=== PATIENT | male | born 1950 | race Caucasian/White ===

== ENCOUNTER 2017-05-08 06:56 | Day surgery (SDC) | payer MEDICARE, BC ==
[~2017-05-08 06:56] MED LIST: Bupivacaine 0.5%/EPINEPHrine 1:200,000 50 ML MDV ONE
[2017-05-08] MEDS ORDERED: Neostigmine Methylsulfate 1 MG/ML 5 ML Syringe ONE (07:29)
[2017-05-08] MEDS ORDERED: Propofol 200 MG/20 ML SDV ONE (07:29)
[2017-05-08] MEDS ORDERED: Rocuronium 50 MG/5 ML Vial ONE (07:29)
[2017-05-08] MEDS ORDERED: Dexamethasone 4 MG/ML SDV ONE (07:29)
[2017-05-08] MEDS ORDERED: Glycopyrrolate 0.2 MG/ML 5 ML MDV ONE (07:29)
[2017-05-08] MEDS ORDERED: Succinylcholine 200 MG/10 ML MDV ONE (07:29)
[2017-05-08] MEDS ORDERED: Ondansetron 4 MG/2 ML SDV ONE (07:29)
[2017-05-08] MEDS: Dextrose 5%-Lactated Ringers 1,000 ML IV SCH ×2 (07:54→22:03)
[2017-05-08] MEDS ORDERED: cefOXitin 2 GM in Sodium Chloride 0.9% 50 ML IV ONE (08:15)
[2017-05-08] MEDS ORDERED: Naloxone 0.4 MG/ML SDV IVPUSH PRN (08:51)
[2017-05-08] MEDS ORDERED: HYDROmorphone/Normal Saline 15 MG/30 ML PCA IV PRN (08:51)
[2017-05-08] MEDS ORDERED: Insulin Aspart 100 Units/ML 3 ML Pen SUBCUT ONE (10:15)
[2017-05-08] MEDS ORDERED: hydrOXYzine HCl 100 MG/2 ML SDV IM ONE (10:15)
[2017-05-08] MEDS ORDERED: fentaNYL 100 MCG/2 ML SDV IVPUSH ONE (10:25)
[2017-05-08] MEDS ORDERED: Naloxone 0.4 MG/ML SDV IV PRN (11:54)
[2017-05-08] MEDS ORDERED: Insulin Aspart 100 Units/ML 3 ML Pen SUBCUT PRN (11:58)
[2017-05-08] MEDS ORDERED: 50% Dextrose in Water 50 ML Syringe IVPUSH PRN (11:58)
[2017-05-08] MEDS ORDERED: Glucose Gel 15 GM in 37.5 GM Tube PO PRN (11:58)
[2017-05-08] MEDS ORDERED: Glucagon,Human Recombinant 1 MG Vial IM PRN (11:58)
[2017-05-08] MEDS ORDERED: Ondansetron 4 MG/2 ML SDV IVPUSH PRN (12:00)
[2017-05-08] MEDS: cefOXitin 2 GM in Sodium Chloride 0.9% 50 ML IV SCH ×2 (13:52→19:16)
[2017-05-08] MEDS ORDERED: Pantoprazole 40 MG Vial IVPUSH SCH (14:00)
[2017-05-08] MEDS ORDERED: INVOKAMET PO SCH (17:00)
[2017-05-08] MEDS: Metoprolol Tartrate 50 MG Tab PO SCH (20:44)
[2017-05-09] MEDS: Acetaminophen/HYDROcodone 325-5 MG Tab PO PRN ×3 (02:20→11:38)
[2017-05-09] MEDS: cefOXitin 2 GM in Sodium Chloride 0.9% 50 ML IV SCH ×2 (02:20→08:05)
[2017-05-09 08:01] VITALS: BP 122/68
[2017-05-09] MEDS: Metoprolol Tartrate 50 MG Tab PO SCH (08:08)
[2017-05-09] MEDS ORDERED: Aspirin 81 MG Tab.EC PO SCH (09:00)
[2017-05-09] MEDS ORDERED: Allopurinol 300 MG Tab PO SCH (09:00)
--- NOTE | 2017-05-09 15:48 | DISCH ---
FINAL DIAGNOSES: 1. Chronic cholecystitis and cholelithiasis. 2. Incarcerated incisional hernia. 3. History of hypertension. 4. History of type 2 diabetes mellitus. 5. History of gout. OPERATIVE PROCEDURE: Done on 05/09/2017 was diagnostic laparoscopy with, 1. Laparoscopic cholecystectomy. 2. Laparoscopic repair of incarcerated incisional hernia. HOSPITAL COURSE: This is a 67-year-old male presenting with chronic pain associated with gallstones with the pain being consistent with biliary colic. On the day of admission, the patient underwent a laparoscopic cholecystectomy along with repair of a fairly large incisional hernia in the periumbilical area. Postoperatively, he has had no significant problems and will be discharged home on his usual medications plus Kramer 5/325 mg 1-2 tabs q.4 hours p.r.n. Follow up will be with Dr. Sparks at [facility] on 05/20/2017.
--- NOTE | 2017-05-11 13:03 | OR ---
DATE OF PROCEDURE: 05/08/2017 PREOPERATIVE DIAGNOSIS: Chronic cholecystitis and cholelithiasis. POSTOPERATIVE DIAGNOSES: 1. Chronic cholecystitis and cholelithiasis. 2. Incarcerated incisional hernia. OPERATIVE PROCEDURES: Diagnostic laparoscopy with; 1. Cholecystectomy (47181). 2. Repair of incarcerated incisional hernia (20095). ANESTHESIA: General. PRECISION STRUCTURAL METAL FITTER: Cata Edwards PA-C. INDICATION FOR PROCEDURE: This 67-year-old male is presenting with some recurrent right upper quadrant pain. Ultrasound showed gallstones along with some thickened gallbladder wall, and the overall picture was suggestive of biliary colic. Given this, he is to undergo a cholecystectomy at this time. Potential risks including bleeding, infection, injury to underlying viscera such as common bile duct, possible migration of stones in the common bile duct requiring additional procedures for correction, along with possibility of persistent or recurrent symptoms postoperatively were all gone over, and the patient wishes to proceed. DETAILS OF PROCEDURE: The patient was taken to the operating room and placed in the supine position. After general endotracheal anesthesia was induced, the abdomen was prepped and draped. On examination of the umbilicus, he was noted to have a previous incision there used for a previous laparoscopic appendectomy. This was noted to have a large volume of tissue within it. A transverse subumbilical incision was made, and this was then partially reduced. This contained some omentum. Through the hernia defect, then a 12-mm trocar was placed to begin the cholecystectomy. A 12-mm epigastric trocar was then placed and two 5-mm right abdominal trocars were then also placed. Gallbladder was noted to be thick-walled and somewhat edematous consistent with chronic cholecystitis. The gallbladder was then retracted anteriorly and laterally. Some omental adhesions to gallbladder were taken down as well as some duodenal adhesions. The dissection then continued down on the gallbladder neck and cystic duct junction. Once that area was well delineated as was the adjacent cystic artery, both structures were clipped 3 times proximally and once distally and divided. The gallbladder was then dissected off the gallbladder bed using Harmonic scalpel and delivered through the epigastric port. It was noted to contain a multitude of small stones up to roughly the size of a pea. The epigastric trocar was then replaced and attention was taken to the hernia. Using the two 5-mm trocars on the right side, the hernia was gradually reduced with external portion and Harmonic scalpel dissection. The omentum was then divided and a portion of this along with the hernia sac were sent as a specimen. The hernia was then repaired with endoscopic suture passers with a transverse orientation in terms of closure with 0 Vicryl sutures. Once these were all in place, these were subsequently tied after decompression of the abdomen. A Xavier-Marti drain was taken through the right lateral trocar site and positioned into the gallbladder bed, after which the remaining trocars were removed. The fascia at the epigastric site was also closed with 0 Vicryl stitch, and the skin at each incision with 6-0 Vicryl skin stitch. The umbilical skin was closed after tying the umbilical hernia repair sutures. Dressing was applied. The patient was taken to the recovery room in satisfactory condition. Physician virtual assistant for advertisers, Cata Edwards, played an essential role in assisting in this case, helping to position the patient, retract structures as needed, as well as suturing and cutting sutures when indicated. Her presence improved patient safety and decreased the operative time. Bimal Sparks MD /[id number]
== END 2017-05-09 12:00 | disposition home or self-care (01) ==
LOC: JP.SDS 06:56 → JP.MS 10:00 → JP.SDS 05-09 12:00
PROVIDERS: ATTEND Surgery
DX: K80.10 Calculus of gallbladder with chronic cholecystitis without obstruction (principal); K43.2 Incisional hernia without obstruction or gangrene; I10 Essential (primary) hypertension; E11.9 Type 2 diabetes mellitus without complications; J44.9 Chronic obstructive pulmonary disease, unspecified; F41.9 Anxiety disorder, unspecified; E66.01 Morbid (severe) obesity due to excess calories; Z88.8 Allergy status to other drugs, medicaments and biological substances; Z79.82 Long term (current) use of aspirin; Z79.899 Other long term (current) drug therapy
CPT/HCPCS: 36415; 47562; 49655; 82247; 82962; 84075; 85025; 94762; A9270; C9113; J0330; J0694; J1100; J1170; J2405; J2704; J2710; J3010; J3410; J7042; J7050; 88302; 88304

== ENCOUNTER 2023-02-02 12:52 | Emergency (ER) | payer MEDICARE, BC ==
[2023-02-02 12:59] VITALS: BP 146/84; PULSE 78
[2023-02-02 13:29] LABS: BASOPHILS ABSOLUTE AUTO 0.06 K/uL (0.00-0.10); BASOPHILS PERCENT AUTO 0.7 % (0.1-1.3); EOSINOPHILS ABSOLUTE AUTO 0.23 K/uL (0.00-0.40); EOSINOPHILS PERCENT AUTO 2.6 % (0.0-5.4); HEMATOCRIT 45.2 % (38.4-49.7); IMMATURE GRAN ABSOLUTE AUTO 0.03 K/uL (0.00-0.23); IMMATURE GRAN PERCENT AUTO 0.3 % (0.0-0.7); LYMPHOCYTES ABSOLUTE AUTO 2.44 K/uL (0.8-3.3); LYMPHOCYTES PERCENT AUTO 27.1 % (11.4-47.7); MEAN CORPUSCULAR HEMOGLOBIN 31.4 pg (31.6-35.5); MEAN CORPUSCULAR HGB CONC 33.2 g/dL (31.6-35.5); MEAN CORPUSCULAR VOLUME 94.6 fL (81.4-99.0); MONOCYTES ABSOLUTE AUTO 0.68 K/uL (0.20-0.90); MONOCYTES PERCENT AUTO 7.6 % (3.3-12.6); NEUTROPHILS ABSOLUTE AUTO 5.56 K/uL (1.0-7.6); NEUTROPHILS PERCENT AUTO 61.7 % (40.0-78.1); PLATELET COUNT,PLT 180 K/uL (130-375); RED BLOOD CELL COUNT 4.78 M/uL (4.14-5.76)
[2023-02-02 13:49] LABS: A/G RATIO 0.9 (1.2-2.2); ALANINE AMINOTRANSFERASE,ALT 35 U/L (12-78); ALBUMIN 3.4 g/dL (3.4-5.0); ALKALINE PHOSPHATASE 91 U/L (46-116); ASPARTATE AMNIOTRANSFERASE,AST 49 U/L (15-37); BILIRUBIN TOTAL 0.6 mg/dL (0.2-1.0); BLOOD UREA NITROGEN,BUN 12 mg/dL (7-18); CALCIUM 9.6 mg/dL (8.5-10.1); CARBON DIOXIDE,CO2 30 mmol/L (21-32); CHLORIDE,CL 99 mmol/L (100-108); ESTIMATED GFR 80 mL/min (>60); GLUCOSE RANDOM 212 mg/dL (74-106); POTASSIUM,K 4.5 mmol/L (3.6-5.2); PROTEIN TOTAL,TP 7.2 g/dL (6.4-8.2); SODIUM,NA 137 mmol/L (140-148)
[2023-02-02 13:51] LABS: ANION GAP 12.5 mmol/L (5.0-14.0)
[2023-02-02 15:29] LABS: APPEARANCE,URINE SLIGHTLY CLOUDY (CLEAR); BILIRUBIN,URINE NEGATIVE (NEGATIVE); COLOR,URINE YELLOW (YELLOW); GLUCOSE,URINE NEGATIVE (NEGATIVE); KETONES,URINE NEGATIVE (NEGATIVE); LEUKOCYTE ESTERASE,URINE TRACE (NEGATIVE); NITRITE,URINE NEGATIVE (NEGATIVE); OCCULT BLOOD,URINE NEGATIVE (NEGATIVE); PH,URINE 5.5 (5.0-8.0); PROTEIN,URINE TRACE mg/dL (NEGATIVE); UROBILINOGEN,URINE 0.2 EU/dL (0.2-1.0)
[2023-02-02 15:40] LABS: AMORPHOUS SEDIMENT,URINE NOT SEEN; BACTERIA,URINE FEW; EPITHELIAL CELLS,URINE RARE; MUCUS,URINE MANY; RBC,URINE 0-5 (0-5)
[2023-02-02] MEDS ORDERED: Cephalexin 250 MG Cap PO ONE (16:20)
== END 2023-02-02 17:33 | disposition home or self-care (01) ==
LOC: JP.ED 12:52
DX: S09.90XA Unspecified injury of head, initial encounter (principal); R07.9 Chest pain, unspecified; R41.0 Disorientation, unspecified; M25.511 Pain in right shoulder; I10 Essential (primary) hypertension; E11.9 Type 2 diabetes mellitus without complications; E66.9 Obesity, unspecified; Z79.899 Other long term (current) drug therapy; Z79.82 Long term (current) use of aspirin; Z90.49 Acquired absence of other specified parts of digestive tract; W18.39XA Other fall on same level, initial encounter
CPT/HCPCS: 36415; 70450; 71100; 80053; 81001; 85025; 85730; 87086; 99285; A9270

== ENCOUNTER 2024-04-11 17:58 | Emergency (ER) | payer BC, MEDICARE ==
[2024-04-11 19:57] VITALS: BP 112/69; PULSE 109
[2024-04-11] MEDS: Acetaminophen/HYDROcodone 325-10 MG Tab PO ONE (22:13)
== END 2024-04-11 22:40 | disposition home or self-care (01) ==
LOC: JP.ED 17:58
DX: S01.111A Laceration without foreign body of right eyelid and periocular area, initial encounter (principal); S13.9XXA Sprain of joints and ligaments of unspecified parts of neck, initial encounter; I10 Essential (primary) hypertension; E78.00 Pure hypercholesterolemia, unspecified; E11.9 Type 2 diabetes mellitus without complications; Z90.49 Acquired absence of other specified parts of digestive tract; Z79.84 Long term (current) use of oral hypoglycemic drugs; Z79.899 Other long term (current) drug therapy; Z79.82 Long term (current) use of aspirin; W22.8XXA Striking against or struck by other objects, initial encounter; Y92.512 Supermarket, store or market as the place of occurrence of the external cause
CPT/HCPCS: 70450; 72125; 76377; 99283; A9270

== ENCOUNTER 2024-09-04 15:11 | Emergency (ER) | payer MEDICARE, BC ==
[2024-09-04 15:29] VITALS: BP 119/61; PULSE 79
== END 2024-09-04 17:04 | disposition home or self-care (01) ==
LOC: JP.ED 15:11
DX: S01.511A Laceration without foreign body of lip, initial encounter (principal); S80.02XA Contusion of left knee, initial encounter; S00.81XA Abrasion of other part of head, initial encounter; I10 Essential (primary) hypertension; E78.00 Pure hypercholesterolemia, unspecified; E11.9 Type 2 diabetes mellitus without complications; Z90.49 Acquired absence of other specified parts of digestive tract; Z79.899 Other long term (current) drug therapy; Z79.84 Long term (current) use of oral hypoglycemic drugs; Z79.82 Long term (current) use of aspirin; W19.XXXA Unspecified fall, initial encounter
CPT/HCPCS: 70450; 72125; 76377; 99284

== ENCOUNTER 2025-01-28 09:11 | Emergency (ER) | payer MEDICARE, BC ==
[2025-01-28 10:17] LABS: BASOPHILS ABSOLUTE AUTO 0.07 K/uL (0.00-0.10); BASOPHILS PERCENT AUTO 0.5 % (0.1-1.3); EOSINOPHILS ABSOLUTE AUTO 0.54 K/uL (0.00-0.40); EOSINOPHILS PERCENT AUTO 4.1 % (0.0-5.4); HEMATOCRIT 41.5 % (38.4-49.7); HEMOGLOBIN 14.2 g/dL (12.9-16.9); IMMATURE GRAN ABSOLUTE AUTO 0.05 K/uL (0.00-0.23); IMMATURE GRAN PERCENT AUTO 0.4 % (0.0-0.7); LYMPHOCYTES ABSOLUTE AUTO 2.05 K/uL (0.8-3.3); LYMPHOCYTES PERCENT AUTO 15.5 % (11.4-47.7); MEAN CORPUSCULAR HEMOGLOBIN 32.8 pg (31.6-35.5); MEAN CORPUSCULAR HGB CONC 34.2 g/dL (31.6-35.5); MEAN CORPUSCULAR VOLUME 95.8 fL (81.4-99.0); MONOCYTES ABSOLUTE AUTO 0.97 K/uL (0.20-0.90); MONOCYTES PERCENT AUTO 7.3 % (3.3-12.6); NEUTROPHILS ABSOLUTE AUTO 9.53 K/uL (1.0-7.6); NEUTROPHILS PERCENT AUTO 72.2 % (40.0-78.1); PLATELET COUNT,PLT 150 K/uL (130-375); RED BLOOD CELL COUNT 4.33 M/uL (4.14-5.76); WHITE BLOOD CELL COUNT,WBC 13.2 K/uL (3.2-11.0)
[2025-01-28 10:34] LABS: PROTHROMBIN TIME 10.4 sec (9.2-10.6)
[2025-01-28 10:38] LABS: A/G RATIO 1.1 (1.2-2.2); ALANINE AMINOTRANSFERASE,ALT 22 U/L (12-78); ALBUMIN 3.5 g/dL (3.4-5.0); ALKALINE PHOSPHATASE 76 U/L (46-116); ANION GAP 9.1 mmol/L (5.0-14.0); ASPARTATE AMNIOTRANSFERASE,AST 22 U/L (15-37); BILIRUBIN TOTAL 0.9 mg/dL (0.2-1.0); BLOOD UREA NITROGEN,BUN 15 mg/dL (7-18); CALCIUM 9.8 mg/dL (8.5-10.1); CARBON DIOXIDE,CO2 31 mmol/L (21-32); CHLORIDE,CL 101 mmol/L (100-108); CREATININE 1.1 mg/dL (0.8-1.3); EST CRCL DRUG DOSING (CG) 67.59 mL/min; ESTIMATED GFR 71 mL/min (>60); GLUCOSE RANDOM 166 mg/dL (74-106); POTASSIUM,K 4.3 mmol/L (3.6-5.2); PROTEIN TOTAL,TP 6.8 g/dL (6.4-8.2); SODIUM,NA 141 mmol/L (140-148)
[2025-01-28] MEDS: Sodium Chloride 0.9% 1,000 ML IV ONE ×2 (12:00→14:11)
[2025-01-28] MEDS: HYDROmorphone 1 MG/ML Syringe IM ONE (13:09)
[2025-01-28 14:09] LABS: BILIRUBIN,URINE NEGATIVE (NEGATIVE); COLOR,URINE YELLOW (YELLOW); GLUCOSE,URINE NEGATIVE (NEGATIVE); KETONES,URINE TRACE mg/dL (NEGATIVE); LEUKOCYTE ESTERASE,URINE SMALL (NEGATIVE); NITRITE,URINE NEGATIVE (NEGATIVE); OCCULT BLOOD,URINE NEGATIVE (NEGATIVE); PH,URINE 5.5 (5.0-8.0); PROTEIN,URINE TRACE mg/dL (NEGATIVE); UROBILINOGEN,URINE 0.2 EU/dL (0.2-1.0)
[2025-01-28 14:23] LABS: APPEARANCE,URINE CLOUDY (CLEAR); BACTERIA,URINE FEW; EPITHELIAL CELLS,URINE RARE; RBC,URINE 0-5 (0-5); WBC,URINE 20-30 (0-5)
[2025-01-28 14:24] LABS: AMORPHOUS SEDIMENT,URINE NOT SEEN; MUCUS,URINE MANY
[2025-01-28] MEDS: cefTRIAXone 1 GM in Sodium Chloride 0.9% 50 ML IV ONE (14:43)
[2025-01-28 15:37] VITALS: BP 125/81; PULSE 76
== END 2025-01-28 16:20 | disposition home or self-care (01) ==
LOC: JP.ED 09:11
DX: N39.0 Urinary tract infection, site not specified (principal); R53.1 Weakness; I10 Essential (primary) hypertension; E78.00 Pure hypercholesterolemia, unspecified; E11.9 Type 2 diabetes mellitus without complications; Z79.899 Other long term (current) drug therapy; Z79.84 Long term (current) use of oral hypoglycemic drugs; Z79.82 Long term (current) use of aspirin
CPT/HCPCS: 36415; 70450; 71045; 80053; 81001; 85025; 85610; 96361; 96365; 99285; J0696; J7030; 99283

== ENCOUNTER 2025-05-24 22:31 | Emergency (ER) | payer MEDICARE, BC ==
[2025-05-24 23:26] LABS: BASOPHILS ABSOLUTE AUTO 0.04 K/uL (0.00-0.10); BASOPHILS PERCENT AUTO 0.5 % (0.1-1.3); EOSINOPHILS ABSOLUTE AUTO 0.28 K/uL (0.00-0.40); EOSINOPHILS PERCENT AUTO 3.6 % (0.0-5.4); IMMATURE GRAN ABSOLUTE AUTO 0.04 K/uL (0.00-0.23); IMMATURE GRAN PERCENT AUTO 0.5 % (0.0-0.7); LYMPHOCYTES ABSOLUTE AUTO 2.49 K/uL (0.8-3.3); LYMPHOCYTES PERCENT AUTO 31.8 % (11.4-47.7); MONOCYTES ABSOLUTE AUTO 0.84 K/uL (0.20-0.90); MONOCYTES PERCENT AUTO 10.7 % (3.3-12.6); NEUTROPHILS ABSOLUTE AUTO 4.14 K/uL (1.0-7.6); NEUTROPHILS PERCENT AUTO 52.9 % (40.0-78.1); PLATELET COUNT,PLT 138 K/uL (130-375); RED BLOOD CELL COUNT 4.55 M/uL (4.14-5.76); WHITE BLOOD CELL COUNT,WBC 7.8 K/uL (3.2-11.0)
[2025-05-24 23:39] LABS: BLOOD UREA NITROGEN,BUN 11.0 mg/dL (7-18); CARBON DIOXIDE,CO2 31.0 mmol/L (21-32); CHLORIDE,CL 101.0 mmol/L (100-108); CREATININE 0.8 mg/dL (0.8-1.3); EST CRCL DRUG DOSING (CG) 91.55 mL/min; ESTIMATED GFR 93.0 mL/min (>60); GLUCOSE RANDOM 107.0 mg/dL (74-106); POTASSIUM,K 4.2 mmol/L (3.6-5.2); SODIUM,NA 140.0 mmol/L (140-148)
[2025-05-25] MEDS: Lidocaine 2% Jelly 10 ML Urojet MUCMEM ONE (00:09)
[2025-05-25 02:50] VITALS: BP 119/68; PULSE 61
== END 2025-05-25 02:49 | disposition other institution (70) ==
LOC: JP.ED 22:31
DX: N40.1 Benign prostatic hyperplasia with lower urinary tract symptoms (principal); R33.8 Other retention of urine; E78.00 Pure hypercholesterolemia, unspecified; I10 Essential (primary) hypertension; E11.9 Type 2 diabetes mellitus without complications; Z88.8 Allergy status to other drugs, medicaments and biological substances; Z79.82 Long term (current) use of aspirin; Z79.899 Other long term (current) drug therapy
CPT/HCPCS: 36415; 80048; 85025; 99285

== ENCOUNTER 2025-06-08 10:25 | Emergency (ER) | payer MEDICARE, BC ==
[2025-06-08 11:04] LABS: BASOPHILS ABSOLUTE AUTO 0.04 K/uL (0.00-0.10); BASOPHILS PERCENT AUTO 0.5 % (0.1-1.3); EOSINOPHILS ABSOLUTE AUTO 0.18 K/uL (0.00-0.40); EOSINOPHILS PERCENT AUTO 2.1 % (0.0-5.4); IMMATURE GRAN ABSOLUTE AUTO 0.05 K/uL (0.00-0.23); IMMATURE GRAN PERCENT AUTO 0.6 % (0.0-0.7); LYMPHOCYTES ABSOLUTE AUTO 1.39 K/uL (0.8-3.3); LYMPHOCYTES PERCENT AUTO 16.3 % (11.4-47.7); MONOCYTES ABSOLUTE AUTO 0.85 K/uL (0.20-0.90); MONOCYTES PERCENT AUTO 9.9 % (3.3-12.6); NEUTROPHILS ABSOLUTE AUTO 6.04 K/uL (1.0-7.6); NEUTROPHILS PERCENT AUTO 70.6 % (40.0-78.1); PLATELET COUNT,PLT 151 K/uL (130-375); RED BLOOD CELL COUNT 4.07 M/uL (4.14-5.76); WHITE BLOOD CELL COUNT,WBC 8.6 K/uL (3.2-11.0)
[2025-06-08 11:21] LABS: BLOOD UREA NITROGEN,BUN 14.0 mg/dL (7-18); CARBON DIOXIDE,CO2 32.0 mmol/L (21-32); CHLORIDE,CL 101.0 mmol/L (100-108); CREATININE 0.8 mg/dL (0.8-1.3); EST CRCL DRUG DOSING (CG) 88.92 mL/min; ESTIMATED GFR 93.0 mL/min (>60); GLUCOSE RANDOM 150.0 mg/dL (74-106); POTASSIUM,K 4.1 mmol/L (3.6-5.2); SODIUM,NA 139.0 mmol/L (140-148)
[2025-06-08 12:51] LABS: APPEARANCE,URINE SLIGHTLY CLOUDY (CLEAR); GLUCOSE,URINE NEGATIVE (NEGATIVE); OCCULT BLOOD,URINE SMALL (NEGATIVE)
[2025-06-08 12:59] LABS: SQUAMOUS EPITHELIAL CELLS,UR FEW /HPF
[2025-06-08 14:39] VITALS: BP 126/102; PULSE 61
== END 2025-06-08 15:39 | disposition home or self-care (01) ==
LOC: JP.ED 10:25
DX: N43.3 Hydrocele, unspecified (principal); N40.1 Benign prostatic hyperplasia with lower urinary tract symptoms; R33.8 Other retention of urine; N39.0 Urinary tract infection, site not specified; E78.00 Pure hypercholesterolemia, unspecified; I10 Essential (primary) hypertension; E11.9 Type 2 diabetes mellitus without complications; Z79.82 Long term (current) use of aspirin; Z79.899 Other long term (current) drug therapy; Z79.84 Long term (current) use of oral hypoglycemic drugs
CPT/HCPCS: 36415; 76870; 80048; 81001; 83605; 85025; 86140; 87086; 93975; 99285; A9270